=== PATIENT | female | born 1960 | race Caucasian/White ===

== ENCOUNTER 2020-03-13 06:24 | Day surgery (SDC) | payer OTHER ==
[~2020-03-13] VITALS: Ht 165.1 cm; Wt 107.3 kg
[~2020-03-13 06:24] MED LIST: SODIUM CHLORIDE 0.9% 1,000 ML ONE
[2020-03-13] MEDS ORDERED: LIDOCAINE 2% 30 ML JELLY TP ONE (06:25)
[2020-03-13] MEDS ORDERED: ALBUTEROL SULFATE 2.5 MG/0.5 ML NEB SOLUTION NEB ONE (06:25)
[2020-03-13] MEDS ORDERED: LIDOCAINE 4% 50 ML SOLUTION TP ONE (06:25)
[2020-03-13] MEDS ORDERED: BENZOCAINE 20% 50 MCG/SPRAY 57 GM TP ONE (06:25)
[2020-03-13] MEDS ORDERED: SODIUM CHLORIDE 0.9% 1,000 ML IV ONE (07:00)
[2020-03-13] MEDS ORDERED: DULO30CA2 PO (07:40)
[2020-03-13] MEDS ORDERED: LEVO50 PO (07:40)
[2020-03-13] MEDS ORDERED: DOXE10 PO (07:40)
[2020-03-13] MEDS ORDERED: MONT10TA21 PO (07:40)
[2020-03-13] MEDS ORDERED: CYCL10 PO (07:40)
[2020-03-13] MEDS ORDERED: HYDR-3290 PO (07:40)
[2020-03-13] MEDS ORDERED: BUSP5TAB20 PO (07:40)
[2020-03-13] MEDS ORDERED: OMEP20 PO (07:40)
[2020-03-13] MEDS ORDERED: PREG25 PO (07:40)
[2020-03-13] MEDS ORDERED: MIDAZOLAM HCL 2 MG/2 ML VIAL ONE (08:00)
[2020-03-13] MEDS ORDERED: FentaNYL CITRATE-PF 100 MCG/2 ML VIAL ONE (08:00)
[2020-03-13] MEDS ORDERED: MethylPREDNISolone SOD SUCC 125 MG/2 ML VIAL IVP ONE (08:45)
[2020-03-13] MEDS ORDERED: MethylPREDNISolone SOD SUCC 125 MG/2 ML VIAL ONE (09:19)
[2020-03-13] MEDS ORDERED: OXYGEN THERAPY IH SCH (20:00)
== END 2020-03-13 10:20 | disposition home or self-care (01) ==
LOC: SURGERY 06:24
PROVIDERS: ATTEND Internal Medicine Critical Care Medicine
DX: J38.4 Edema of larynx (principal); B37.0 Candidal stomatitis; Z87.01 Personal history of pneumonia (recurrent); K21.9 Gastro-esophageal reflux disease without esophagitis; Z79.899 Other long term (current) drug therapy
CPT/HCPCS: 31623; 31624; 71045; 87015; 87070; 87077; 87101; 87205; 87206; 87220; 87635; 88108; 88312; J2250; J2930; J3010; J7030